=== PATIENT | male | born 1965 | race Caucasian/White ===

== ENCOUNTER 2018-04-24 09:21 | Emergency (ER) | payer OTHER, SELFPAY ==
--- NOTE | 2018-04-24 09:23 | ED.GENADULT ---
HPI - General Adult General Chief complaint: Urogenital-Male Stated complaint: states kidney stones, urinating blood Time Seen by Provider: 04/24/18 09:22 Source: patient Mode of arrival: ambulatory Limitations: no limitations History of Present Illness HPI narrative: Otherwise healthy 52-year-old male here for evaluation of when he thinks could potentially be a kidney stone. He states that approximately 14 days ago he had a trampoline accident where he states that he bent myself over did not seek any treatment afterwards. He states that a couple days after that he started having vague dysuria symptoms with urgency and frequency. He states that over the next week it got a little worse. Did not have any back pain. Did not have any tingling in his legs. No saddle anesthesia. He states that over the past week he now has started passing blood. No fevers. No nausea or vomiting. States that his pain is on the right side. Is radiating down to his groin however does not have any testicular pain. Has never had a kidney stone in the past. States that his symptoms are not worse with palpation or movement. Related Data Previous Rx's Medication Instructions Recorded albuterol sulfate [Ventolin HFA] 2 puff INH QID #1 ea 08/30/16 azithromycin [Zithromax] 250 - 500 mg PO QDAY #6 tab 08/30/16 ciprofloxacin HCl [Cipro] 500 mg PO BID 7 Days #14 tab 04/24/18 Allergies Allergy/AdvReac Type Severity Reaction Status Date / Time No Known Allergies Allergy Uncoded 07/01/17 12:44 Review of Systems Constitutional Denies fever(s) ENT Ears, Nose, Mouth, and Throat: Denies vertigo, Denies dizziness and Denies disequilibrium Cardiovascular Denies chest pain and Denies dyspnea Respiratory Denies dyspnea Gastrointestinal Gastrointestinal: Reports abdominal pain, Denies diarrhea, Denies loose stools, Denies nausea and Denies vomiting Genitourinary Denies difficulty urinating, Reports dysuria, Reports flank pain, Denies scrotal swelling, Denies testicular mass, Denies testicular pain, Reports urinary frequency, Reports urinary hesitancy, Denies urinary incontinence and Reports urinary urgency Musculoskeletal Denies back pain, Denies numbness and Denies tingling Integumentary/Breasts Denies lesions and Denies rash Neurologic Denies confusion, Denies vertigo, Denies dizziness, Denies numbness, Denies radicular pain, Denies tingling, Denies paresthesias and Denies disequilibrium Psychiatric Denies confusion Hematologic/Lymphatic Comments: Not on anticoagulation Allergic/Immunologic Denies urticaria PFSH Medical History Healthy adult (Acute) Surgical History H/O inguinal hernia repair (Acute) Social History marital status: lives independently: Yes Social History marital status: lives independently: Yes Exam Initial Vital Signs Initial Vital Signs: Vital Signs Temperature 98.0 F 04/24/18 09:27 Pulse Rate 90 04/24/18 09:27 Respiratory Rate 13 04/24/18 09:27 Blood Pressure 141/93 H 04/24/18 09:27 Pulse Oximetry 100 04/24/18 09:27 Const General: cooperative, healthy appearing, comfortable, well developed, well groomed and No acute distress Orientation: alert, awake and oriented x3 HENMT Head: normal to inspection and normocephalic Resp Effort & Inspection: normal respiratory effort Auscultation: clear to auscultation bilaterally Cardio Rate: regular rate Pulses: radial pulses present GI Inspection: non-distended Palpation: soft, No firm and No tender General: No CVA tenderness Back/Spine/Pelvis Back: No CVA tenderness Skin Lesions: no lesions Rashes: no rashes Neuro General: alert, awake and oriented x3 Cognition: normal cognition Speech: speech normal Gait: normal gait Motor: muscle tone normal throughout Sensory Exam: no sensory deficits noted Extrem General: normal to inspection and capillary refill normal Psych Appearance: grossly normal and well kempt Course Orders Ordered: ED Orders 04/24/18 10:08 Urinalysis and Microscopic Stat Urine Culture Stat Discontinued Medications Ciprofloxacin (Cipro) 500 mg PO NOW ONE Stop: 04/24/18 10:59 Last Admin: 04/24/18 11:11 Dose: 500 mg Vital Signs - 8 hr 04/24/18 11:30 04/24/18 11:53 Pulse Rate 80 68 Respiratory Rate 17 12 Blood Pressure 132/83 Blood Pressure [Left Arm] 132/83 Pulse Oximetry 96 100 Medical Decision Making Lab Data Lab results reviewed: Yes I reviewed the patient's lab results. Result diagrams: 04/24/18 09:45 04/24/18 09:45 Lab Results 04/24/18 04/24/18 04/24/18 Range/Units 09:45 09:45 10:08 WBC 8.9 (4.5-11.0) X10^3/uL RBC 4.71 (4.5-5.9) X10^6/uL Hgb 15.9 (13.5-17.5) g/dL Hct 47.0 (41-53) % MCV 99.6 (80-100) fL MCH 33.8 (26-34) PG MCHC 34.0 (30-36) % RDW 13.5 (11.6-14.8) % Plt Count 232 (150-400) X10^3/uL Neut % (Auto) 63.8 (50-75) % Lymph % (Auto) 20.2 L (25-40) % [place] % (Auto) 13.9 (3-14) % Eos % (Auto) 1.5 L (2-4) % Baso % (Auto) 0.6 (0-2) % Neut # (Auto) 5700 (6588-2641) /uL Lymph # (Auto) 1800 (5409-4787) /uL [place] # (Auto) 1200 H (0-900) /uL Eos # (Auto) 100 (0-450) /uL Baso # (Auto) 100 (0-100) /uL Sodium 138 (137-145) mmol/L Potassium 4.0 (3.4-5.1) mmol/L Chloride 100 (98-107) mmol/L Carbon Dioxide 27 (22-32) mmol/L BUN 12 (9-20) mg/dL Creatinine 0.90 (0.66-1.25) mg/dL Estimated GFR > 60.0 (>60) mL/min BUN/Creatinine Ratio 13.3 (6-22) Glucose 103 H (70-100) mg/dL Calcium 9.0 (8.4-10.2) mg/dL Urine Color Yellow Urine Appearance Sl cloudy Urine pH 6.0 (4.5-8.0) Ur Specific [place] 1.010 (1.000-1.035) Urine Protein 1+ H (Negative) Urine Glucose (UA) Negative (Negative) g/dL Urine Ketones Negative (NEGATIVE) Urine Occult Blood 3+ H (Negative) Urine Nitrate Negative (Negative) Urine Bilirubin Negative (NEGATIVE) Urine Urobilinogen 0.2 (0.2) E.U./dL Ur Leukocyte Esterase 3+ H (NEGATIVE) Urine RBC 30-100/hpf H (0-5/HPF) Urine WBC 30-100/hpf H (0-5/HPF) Urine Bacteria Moderate (10-30) H (None) Ur Culture Indicated? Specimen cultured Imaging Data CT scan - abdomen: Radiologist's impression: [address] [id number] [address] Scan Report Signed Patient: Abdias Hensley RMR#: [id number] : 1965Acct:[id number] Age/Sex: 52 / MDate of Service: 04/24/18 Loc: ED Accession Number: [id number] Procedure: CT abdomen pelvis w con Ordering Provider: Shawn Braga D.O. PROCEDURE: CT ABDOMEN PELVIS W CON INDICATIONS: trauma with hematuria TECHNIQUE: After the administration of intravenous contrast, 5 mm thick sections acquired from the diaphragm to the symphysis. 5 mm coronal and sagittal reformats were acquired. For radiation dose reduction, the following was used: automated exposure control, adjustment of mA and/or kV according to patient size. COMPARISON: None. FINDINGS: Image quality: Excellent. ABDOMEN: Lung bases: Lung bases are clear. Heart size is normal. Solid organs: Liver is normal in size and enhancement. Gallbladder is within normal limits. Biliary system is non dilated. Pancreas enhances normally. Spleen is normal in size and enhancement. No adrenal nodules. Kidneys demonstrate normal size and enhancement, without hydronephrosis. Mild diffuse bilateral ureteral dilatation is present. Peritoneum and bowel: Bowel loops demonstrate normal wall thickness and caliber. No free fluid or air. Normal appendix. Nodes and vessels: No retroperitoneal or mesenteric adenopathy by size criteria. Aorta and inferior vena cava are normal in size. Miscellaneous: No ventral hernias. PELVIS: Genitourinary: There is moderate diffuse urinary bladder wall thickening. Miscellaneous: No inguinal hernias or adenopathy. Bones: No suspicious bony lesions. No vertebral body compression fractures. IMPRESSION: 1. Diffuse urinary bladder wall thickening, suggestive of cystitis. No surrounding fluid to indicate rupture. 2. Normal appendix. Dictated by: Sherita Walker M.D. on 04/24/2018 at 10:30 MDM Narrative Medical decision making narrative: Patient's CT scan does not show any signs of an acute renal stone or other intra-abdominal pathology. His urinalysis and thickening of the bladder wall is somewhat concerning for a urinary tract infection. Given his right-sided flank pain there is also concern that this may be early pyelonephritis. He is not vomiting. He is not toxic appearing. Also informed him that he could have potentially recently passed a kidney stone. Patient was given the 1st dose of his antibiotics orally here in the emergency department. Was sent home with prescription for this. I do not feel like he needs admitted to the hospital for IV antibiotics currently. Patient was given return precautions. He was informed he needed to make contact the primary care doctor in the area. He and his both expressed understanding and agreement with plan. Discharge Plan Departure Patient Disposition: Home Clinical Impression: Urinary tract infection, Hematuria Discharge Date/Time: 04/24/18 12:00 Interventions: ED Discharge Assessment Last Done: 04/24/18 11:53 Instructions: DI for Urinary Tract Infection (UTI), DI for Hematuria Activity Restrictions/Additional Instructions: The CT scan today did not show any signs of a kidney stone. There were indications of a urinary tract infection and because of your right-sided back pain there is also a concern for potential kidney infection. You were given your 1st dose of antibiotics here in the emergency department. Your 2nd dose will be this evening. Take the rest as directed. I do recommend you may contact with the primary care doctor. Return to the emergency department for any fevers, inability to take your antibiotics, worsening symptoms despite the antibiotics, or inability to urinate. Prescriptions: New ciprofloxacin HCl [Cipro] 500 mg tablet 500 mg PO BID 7 Days Qty: 14 RF: 0 No Action azithromycin [Zithromax] 250 MG tablet 250 - 500 mg PO QDAY Qty: 6 RF: 0 albuterol sulfate [Ventolin HFA] 90 MCG/PUFF HFA aerosol inhaler 2 puff INH QID Qty: 1 RF: 0
[2018-04-24 09:27] VITALS: BP 141/93; PULSE 90; RESP 13; TEMP 36.7; O2SAT 100
--- NOTE | 2018-04-24 09:38 | DI.CT.S_ITS ---
PROCEDURE: CT ABDOMEN PELVIS W CON INDICATIONS: trauma with hematuria TECHNIQUE: After the administration of intravenous contrast, 5 mm thick sections acquired from the diaphragm to the symphysis. 5 mm coronal and sagittal reformats were acquired. For radiation dose reduction, the following was used: automated exposure control, adjustment of mA and/or kV according to patient size. COMPARISON: None. FINDINGS: Image quality: Excellent. ABDOMEN: Lung bases: Lung bases are clear. Heart size is normal. Solid organs: Liver is normal in size and enhancement. Gallbladder is within normal limits. Biliary system is non dilated. Pancreas enhances normally. Spleen is normal in size and enhancement. No adrenal nodules. Kidneys demonstrate normal size and enhancement, without hydronephrosis. Mild diffuse bilateral ureteral dilatation is present. Peritoneum and bowel: Bowel loops demonstrate normal wall thickness and caliber. No free fluid or air. Normal appendix. Nodes and vessels: No retroperitoneal or mesenteric adenopathy by size criteria. Aorta and inferior vena cava are normal in size. Miscellaneous: No ventral hernias. PELVIS: Genitourinary: There is moderate diffuse urinary bladder wall thickening. Miscellaneous: No inguinal hernias or adenopathy. Bones: No suspicious bony lesions. No vertebral body compression fractures. IMPRESSION: 1. Diffuse urinary bladder wall thickening, suggestive of cystitis. No surrounding fluid to indicate rupture. 2. Normal appendix. Dictated by: Sherita Walker M.D. on 04/24/2018 at 10:30 Approved by: Sherita Walker M.D. on 04/24/2018 at 10:32
--- NOTE | 2018-04-24 09:53 | PC.NURSE ---
unable to void at this time
[2018-04-24 09:54] LABS: Add Manual Diff / Slide Review NO; Basophils Absolute Auto 100 /uL (0-100); Basophils Percent Auto 0.6 % (0-2); Eosinophils Absolute Auto 100 /uL (0-450); Eosinophils Percent Auto 1.5 % (2-4); Hemoglobin 15.9 g/dL (13.5-17.5); Lymphocytes Absolute Auto 1800 /uL (1100-4500); Lymphocytes Percent Auto 20.2 % (25-40); Mean Corpuscular Hemoglobin 33.8 PG (26-34); Mean Corpuscular Volume 99.6 fL (80-100); Monocytes Absolute Auto 1200 /uL (0-900); Monocytes Percent Auto 13.9 % (3-14); Neutrophils Absolute Auto 5700 /uL (1500-7000); Neutrophils Percent Auto 63.8 % (50-75); Platelet Count 232 X10^3/uL (150-400); Red Blood Cell Count 4.71 X10^6/uL (4.5-5.9); Red Cell Distribution Width 13.5 % (11.6-14.8); White Blood Cell Count 8.9 X10^3/uL (4.5-11.0)
[2018-04-24 10:05] LABS: BUN Creatinine Ratio 13.3 (6-22); Blood Urea Nitrogen 12 mg/dL (9-20); Carbon Dioxide 27 mmol/L (22-32); Chloride 100 mmol/L (98-107); Estimated Glomerular Filt Rate > 60.0 mL/min (>60); Glucose 103 mg/dL (70-100); HEMOLYSIS 42 (0-50); Sodium 138 mmol/L (137-145)
[2018-04-24 10:12] LABS: Appearance Urine UA SL CLOUDY; Bilirubin Urine UA NEGATIVE (NEGATIVE); Color Urine UA YELLOW; Glucose Urine UA NEGATIVE (Negative); Ketones Urine UA NEGATIVE (NEGATIVE); Leukocyte Esterase Urine UA 3+ (NEGATIVE); Nitrite Urine UA NEGATIVE (Negative); Occult Blood Urine UA 3+ (Negative); Protein Urine UA 1+ (Negative); Urobilinogen Urine UA 0.2 E.U./dL (0.2)
[2018-04-24 10:19] LABS: Bacteria Urine Moderate (10-30); Culture Indicated Urine Specimen Cultured; RBC Urine 30-100/HPF (0-5/HPF); WBC Urine 30-100/HPF (0-5/HPF)
[2018-04-24 10:47] VITALS: BP 139/87; PULSE 84; O2SAT 97
[2018-04-24] MEDS: CIPROFLOXACIN 500 MG TABLET PO (11:11)
[2018-04-24 11:30] VITALS: BP 132/83; PULSE 80; RESP 17; O2SAT 96
[2018-04-24 11:53] VITALS: BP 132/83; PULSE 68; RESP 12; O2SAT 100
== END 2018-04-24 12:00 | disposition home or self-care (01) ==
PROVIDERS: Emergency Provider Emergency Medicine
DX: N39.0 Urinary tract infection, site not specified (principal); R31.0 Gross hematuria
CPT/HCPCS: 36591; 51798; 74177; 80048; 81001; 85025; 87077; 87086; 87186; 99284; 99285; Q9967

== ENCOUNTER 2022-11-06 08:18 | Emergency (ER) | payer OTHER, SELFPAY ==
[2022-11-06] VITALS (7 sets, daily range): BP systolic 141–168; BP diastolic 84–104; PULSE 79–106; RESP 14–24; TEMP 37.1; O2SAT 97–98; BMI 24.1
--- NOTE | 2022-11-06 08:25 | DI.RAD.S_ITS ---
PROCEDURE: XR CHEST 1V INDICATIONS: chest pain TECHNIQUE: One view of the chest was acquired. COMPARISON: None. FINDINGS: Surgical changes and devices: None. Lungs and pleura: Lungs are clear. No pleural effusions or pneumothorax. Mediastinum: Mediastinal contours appear normal. Heart size is normal. Bones and chest wall: No suspicious bony lesions. Overlying soft tissues appear unremarkable. IMPRESSION: No acute cardiopulmonary abnormality. Dictated by: Everton Duarte M.D. on 11/06/2022 at 8:48 Approved by: Everton Duarte M.D. on 11/06/2022 at 8:49
[2022-11-06 08:43] LABS: INR 1.2 (0.9-1.3); Prothrombin Time 13.6 SECONDS (10.1-12.7)
[2022-11-06 08:45] LABS: PTT Partial Thromboplastin Tim 33 SECONDS (26-36)
[2022-11-06 08:46] LABS: Alanine Aminotransferase 19 IU/L (<50); Albumin 4.5 g/dL (3.5-5.0); Albumin Globulin Ratio 1.3 (1.0-2.8); Alkaline Phosphatase 119 U/L (38-126); Aspartate Aminotransferase 24 IU/L (17-59); BUN Creatinine Ratio 12.5 (6-22); Bilirubin Total 0.9 mg/dL (0.2-1.3); Blood Urea Nitrogen 14 mg/dL (9-20); Calcium 9.1 mg/dL (8.4-10.2); Carbon Dioxide 23 mmol/L (22-32); Chloride 100 mmol/L (98-107); Creatine Kinase 141 U/L (55-170); Estimated Glomerular Filt Rate > 60 mL/min (>60); Globulin 3.5 g/dL (1.7-4.1); Glucose 193 mg/dL (70-100); HEMOLYSIS 16 (0-50); Lipase 81 U/L (23-300); Magnesium 2.2 mg/dL (1.6-2.3); Sodium 133 mmol/L (137-145)
[2022-11-06] MEDS: ASPIRIN 81 MG CHEW TAB 324 MG PO (08:55)
[2022-11-06 08:58] LABS: Troponin I < 0.012 ng/mL (0.01-0.034)
[2022-11-06 09:03] LABS: Add Manual Diff / Slide Review NO; Basophils Absolute Auto 100 /uL (0-100); Basophils Percent Auto 0.8 % (0-2); Eosinophils Absolute Auto 0 /uL (0-450); Eosinophils Percent Auto 0.1 % (2-4); Hematocrit 46.3 % (41-53); Hemoglobin 16.2 g/dL (13.5-17.5); Lymphocytes Absolute Auto 1300 /uL (1100-4500); Lymphocytes Percent Auto 9.1 % (25-40); Mean Corpuscular HGB Conc 34.9 % (30-36); Mean Corpuscular Volume 94.3 fL (80-100); Monocytes Absolute Auto 1600 /uL (0-900); Monocytes Percent Auto 11.4 % (3-14); Neutrophils Absolute Auto 11000 /uL (1500-7000); Neutrophils Percent Auto 78.6 % (50-75); Platelet Count 225 X10^3/uL (150-400); Red Blood Cell Count 4.91 X10^6/uL (4.5-5.9); Red Cell Distribution Width 14.3 % (11.6-14.8)
[2022-11-06 09:13] LABS: NT-proBNP (BNP-Adult 18+) 580 pg/mL (<125)
--- NOTE | 2022-11-06 09:53 | ED.CHESTPAIN ---
HPI - Chest Pain General Chief Complaint: Chest Pain Stated Complaint: per pt possibly having heart attack Time Seen by Provider: 11/06/22 08:51 Source: patient Mode of arrival: Family Vehicle Limitations: no limitations History of Present Illness HPI narrative: 57-year-old male with history of asthma, patient presents with complaint of elevated heart rate and left-sided chest pressure. Patient states he is had episodes intermittently where his heart rate goes up to 120-160s. Patient states it tends to happen more when his arms above his head work but sometimes can happen at any time. He is noticed it for the last 3-5 months. He states not increasing frequency today it lasted about 10 or 15 minutes he had left-sided chest pressure radiating to his neck. Patient states he felt mildly short of breath he will often feel lightheaded during these episodes. He denies any syncope. He will get sweaty with them. Denies nausea or vomiting. He states he has not had much appetite lately but has been drinking plenty of fluids he states he will sometimes intermittently have diarrhea constipation, sometimes has dark stools. Patient states he does have some difficulty starting his stream when he urinates but no other frequency, dysuria or other changes. Patient has not seen a doctor in many years. Has known history of asthma. Has had prior finger surgery and hernia repair as an infant. Smokes 15 cigarettes daily, half beer some days of the week, uses marijuana, denies other illicit. No family history of pulmonary emboli, clots, no travel but does have a brother who is had multiple stents and heart surgery. He is unsure if his brother has not any cardiac arrhythmias. Related Data Previous Rx's Medication Instructions Recorded cyclobenzaprine 5 mg tablet 5 mg PO TID PRN muscle spasm #20 02/11/21 tabs Allergies Allergy/AdvReac Type Severity Reaction Status Date / Time No Known Drug Allergies Allergy Verified 11/06/22 08:49 Review of Systems Review of Systems ROS Unobtainable: All systems reviewed & are unremarkable except as noted in HPI and below Patient History Medical History Healthy adult Surgical History H/O inguinal hernia repair Social History marital status: lives independently: Yes Smoking Status: Current every day smoker Smoking Status: Current every day smoker tobacco type: cigarettes alcohol intake frequency: holidays/special occasions only Substance Use Type: marijuana Exam Narrative Exam Narrative: GENERAL: Alert and oriented x three, male in mild distress. HEENT: Head normocephalic, atraumatic, EOMI, pupils reactive, face symmetric, moist mucous membranes NECK: Supple, full range of motion CARDIOVASCULAR: Regular rate and rhythm without murmurs, rubs or gallops. No JVD. No swelling bilateral lower extremities. 2+ pulses bilateral lower extremities. RESPIRATORY: Breath sounds equal bilaterally, no wheezes rales or rhonchi. No tachypnea, accessory muscle use. ABDOMEN: Soft, nontender. Normoactive bowel sounds all 4 quadrants. No guarding or rebound, rigidity, no mass : No CVA tenderness EXTREMITIES: Normal range of motion, no clubbing or edema. Neurovascularly intact NEUROLOGICAL: Cranial nerves II through XII grossly intact. Moving all extremities SKIN: Warm, dry, no petechiae, no rashes or lesions. Initial Vital Signs Initial Vital Signs: Vital Signs Temperature 98.8 F 11/06/22 08:25 Pulse Rate 106 H 11/06/22 08:25 Respiratory Rate 14 11/06/22 08:25 Blood Pressure 168/104 H 11/06/22 08:25 Pulse Oximetry 98 11/06/22 08:25 Oxygen Delivery Method Room Air 11/06/22 08:25 Course Orders Ordered: Discontinued Medications Aspirin (Aspirin 81 Mg Chew Tab) 324 mg PO NOW ONE Stop: 11/06/22 08:26 Last Admin: 11/06/22 08:55 Dose: 324 mg Documented By: ALEX Sodium Chloride (Normal Saline 0.9%) 1,000 mls @ 1,000 mls/hr IV BOLUS ONE Stop: 11/06/22 11:07 Last Infusion: 11/06/22 11:22 Dose: 0 mls/hr Documented By: Admin: 11/06/22 10:14 Dose: 1,000 mls/hr Documented By: ALEX Vital Signs Vital signs: Vital Signs - 8 hr 11/06/22 08:25 11/06/22 09:08 11/06/22 09:30 Temperature 98.8 F Pulse Rate 106 H 87 Respiratory Rate 14 20 Blood Pressure 168/104 H 147/91 H 146/84 H Pulse Oximetry 98 97 Oxygen Delivery Method Room Air Room Air 11/06/22 09:30 11/06/22 09:59 11/06/22 10:00 Temperature Pulse Rate 82 86 Respiratory Rate 24 20 Blood Pressure 167/100 H Pulse Oximetry 97 97 Oxygen Delivery Method Room Air 11/06/22 10:00 11/06/22 10:30 11/06/22 10:30 Temperature Pulse Rate 88 84 Respiratory Rate 23 Blood Pressure 141/92 H Pulse Oximetry 97 97 Oxygen Delivery Method 11/06/22 11:00 11/06/22 11:00 Temperature Pulse Rate 79 Respiratory Rate 22 Blood Pressure 144/86 H Pulse Oximetry 98 Oxygen Delivery Method MDM - Chest Pain Lab Data 11/06/22 08:30 11/06/22 08:30 Labs: Lab Results 11/06/22 11/06/22 11/06/22 Range/Units 08:30 08:30 08:30 WBC 14.0 H (4.5-11.0) X10^3/uL RBC 4.91 (4.5-5.9) X10^6/uL Hgb 16.2 (13.5-17.5) g/dL Hct 46.3 (41-53) % MCV 94.3 (80-100) fL MCH 33.0 (26-34) PG MCHC 34.9 (30-36) % RDW 14.3 (11.6-14.8) % Plt Count 225 (150-400) X10^3/uL Neut % (Auto) 78.6 H (50-75) % Lymph % (Auto) 9.1 L (25-40) % Rosebud % (Auto) 11.4 (3-14) % Eos % (Auto) 0.1 L (2-4) % Baso % (Auto) 0.8 (0-2) % Neut # (Auto) 44839 H (7009-3410) /uL Lymph # (Auto) 1300 (6734-9352) /uL Rosebud # (Auto) 1600 H (0-900) /uL Eos # (Auto) 0 (0-450) /uL Baso # (Auto) 100 (0-100) /uL PT 13.6 H (10.1-12.7) SECONDS INR 1.2 (0.9-1.3) APTT 33 (26-36) SECONDS D-Dimer (<500) ng/ml Sodium 133 L (137-145) mmol/L Potassium 4.0 (3.4-5.1) mmol/L Chloride 100 (98-107) mmol/L Carbon Dioxide 23 (22-32) mmol/L BUN 14 (9-20) mg/dL Creatinine 1.12 (0.66-1.25) mg/dL Estimated GFR > 60 (>60) mL/min BUN/Creatinine Ratio 12.5 (6-22) Glucose 193 H (70-100) mg/dL Calcium 9.1 (8.4-10.2) mg/dL Magnesium 2.2 (1.6-2.3) mg/dL Total Bilirubin 0.9 (0.2-1.3) mg/dL AST 24 (17-59) IU/L ALT 19 (<50) IU/L Alkaline Phosphatase 119 (38-126) U/L Total Creatine Kinase 141 (55-170) U/L Troponin I < 0.012 (0.01-0.034) ng/mL NT-Pro-B Natriuret Pep (<125) pg/mL Total Protein 8.0 (6.3-8.2) g/dL Albumin 4.5 (3.5-5.0) g/dL Globulin 3.5 (1.7-4.1) g/dL Albumin/Globulin Ratio 1.3 (1.0-2.8) Lipase 81 (23-300) U/L TSH (0.47-4.68) uIU/mL 11/06/22 11/06/22 11/06/22 Range/Units 08:30 08:30 08:30 WBC (4.5-11.0) X10^3/uL RBC (4.5-5.9) X10^6/uL Hgb (13.5-17.5) g/dL Hct (41-53) % MCV (80-100) fL MCH (26-34) PG MCHC (30-36) % RDW (11.6-14.8) % Plt Count (150-400) X10^3/uL Neut % (Auto) (50-75) % Lymph % (Auto) (25-40) % Rosebud % (Auto) (3-14) % Eos % (Auto) (2-4) % Baso % (Auto) (0-2) % Neut # (Auto) (5133-6519) /uL Lymph # (Auto) (3537-6361) /uL Rosebud # (Auto) (0-900) /uL Eos # (Auto) (0-450) /uL Baso # (Auto) (0-100) /uL PT (10.1-12.7) SECONDS INR (0.9-1.3) APTT (26-36) SECONDS D-Dimer 431 (<500) ng/ml Sodium (137-145) mmol/L Potassium (3.4-5.1) mmol/L Chloride (98-107) mmol/L Carbon Dioxide (22-32) mmol/L BUN (9-20) mg/dL Creatinine (0.66-1.25) mg/dL Estimated GFR (>60) mL/min BUN/Creatinine Ratio (6-22) Glucose (70-100) mg/dL Calcium (8.4-10.2) mg/dL Magnesium (1.6-2.3) mg/dL Total Bilirubin (0.2-1.3) mg/dL AST (17-59) IU/L ALT (<50) IU/L Alkaline Phosphatase (38-126) U/L Total Creatine Kinase (55-170) U/L Troponin I (0.01-0.034) ng/mL NT-Pro-B Natriuret Pep 580 H (<125) pg/mL Total Protein (6.3-8.2) g/dL Albumin (3.5-5.0) g/dL Globulin (1.7-4.1) g/dL Albumin/Globulin Ratio (1.0-2.8) Lipase (23-300) U/L TSH 1.64 (0.47-4.68) uIU/mL 11/06/22 Range/Units 10:35 WBC (4.5-11.0) X10^3/uL RBC (4.5-5.9) X10^6/uL Hgb (13.5-17.5) g/dL Hct (41-53) % MCV (80-100) fL MCH (26-34) PG MCHC (30-36) % RDW (11.6-14.8) % Plt Count (150-400) X10^3/uL Neut % (Auto) (50-75) % Lymph % (Auto) (25-40) % Rosebud % (Auto) (3-14) % Eos % (Auto) (2-4) % Baso % (Auto) (0-2) % Neut # (Auto) (4167-2641) /uL Lymph # (Auto) (7480-2637) /uL Rosebud # (Auto) (0-900) /uL Eos # (Auto) (0-450) /uL Baso # (Auto) (0-100) /uL PT (10.1-12.7) SECONDS INR (0.9-1.3) APTT (26-36) SECONDS D-Dimer (<500) ng/ml Sodium (137-145) mmol/L Potassium (3.4-5.1) mmol/L Chloride (98-107) mmol/L Carbon Dioxide (22-32) mmol/L BUN (9-20) mg/dL Creatinine (0.66-1.25) mg/dL Estimated GFR (>60) mL/min BUN/Creatinine Ratio (6-22) Glucose (70-100) mg/dL Calcium (8.4-10.2) mg/dL Magnesium (1.6-2.3) mg/dL Total Bilirubin (0.2-1.3) mg/dL AST (17-59) IU/L ALT (<50) IU/L Alkaline Phosphatase (38-126) U/L Total Creatine Kinase (55-170) U/L Troponin I 0.018 (0.01-0.034) ng/mL NT-Pro-B Natriuret Pep (<125) pg/mL Total Protein (6.3-8.2) g/dL Albumin (3.5-5.0) g/dL Globulin (1.7-4.1) g/dL Albumin/Globulin Ratio (1.0-2.8) Lipase (23-300) U/L TSH (0.47-4.68) uIU/mL Imaging Data Chest x-ray: Radiologist's Impression: [address] [id number] XRay Report Signed Patient: Abdias Hensley MR#: [id number] : 1965 Acct:[id number] Age/Sex: 57 / M Date of Service: 11/06/22 Loc: ED Accession Number: [id number] ?? Procedure: XR chest 1V Ordering Provider: Katelyn Frazier D.O. PROCEDURE:? XR CHEST 1V ? INDICATIONS:? chest pain ? TECHNIQUE:? One view of the chest was acquired.? ? COMPARISON:? None. ? FINDINGS:? ? Surgical changes and devices:? None.? ? Lungs and pleura:? Lungs are clear.? No pleural effusions or pneumothorax.? ? Mediastinum:? Mediastinal contours appear normal.? Heart size is normal.? ? Bones and chest wall:? No suspicious bony lesions.? Overlying soft tissues appear unremarkable.? ? IMPRESSION:? No acute cardiopulmonary abnormality. ? ? ? Dictated by: Everton Duarte M.D. on 11/06/2022 at 8:48 ? ? Approved by: Everton Duarte M.D. on 11/06/2022 at 8:49?? ECG Data Attestation: I personally reviewed and interpreted this ECG as follows: Prior ECG tracings: not available for review Interpretation: Sinus tachycardia rate of 109 VT 160 QRS is 78 QTC [address]. No acute ST elevation or depression appreciated. No priors for comparison. EKG 2. Shows sinus rhythm rate of 73 VT 174 QRS 82 QTC of 401. No acute ST elevation. Patient depression in lead 3 Q-wave no other acute changes. Patient's EKG appears similar to prior earlier today in lead 3. MDM Narrative Medical decision making narrative: This is a 57-year-old male with remote history of asthma. Patient appreciates intermittent tachycardia that started suddenly without any particular cause although he notes when he is working with his arms over his head it is more common but not always. He would left-sided chest pain with it today. Tachycardia is resolved he was 109. Sinus tach when he arrived he gets numbers 120s to 160s and wears a watch which is correlating with our numbers here in the department. Suspect patient may have some SVT or possibly atrial fibrillation or other cardiac arrhythmia. CBC shows a white count of 14 hemoglobin 16 platelets 225, negative coags, glucose is 193 creatinine is 1.12 with normal BUN and potassium is 4, troponin was negative with a BNP of 580 chest x-ray does not show any acute changes and patient's exam does not have any acute changes consistent with CHF. Patient does not have any high-risk embolic factors other than tobacco use, he does have a brother that has known coronary artery disease unclear if mother has any cardiac arrhythmias. Patient drinks alcohol but typically a half beer daily at the most. He has not been eating very much because of decreased appetite this week. Patient was given a L fluids, repeat troponin EKG as well as dimer. Dimer is negative. No dynamic changes on EKG. Repeat troponin is still negative but point 018. Discussed with patient would like to hang onto him for a 3rd troponin just to make sure he is not still trending upwards. He states he feels asymptomatic at this time prefers to discharge home. Discussed return precautions, signs and symptoms to watch for. Need for follow-up. Plan for follow up with primary care/Cardiology for suspected SVT. Discharge Plan Departure Patient Disposition: Home Clinical Impression: Tachycardia Instructions: DI for Arrhythmias Activity Restrictions/Additional Instructions: I suspect you may be having episodes of SVT (supraventricular tachycardia) or other cardiac arrhythmia. Please call to set follow up with primary care and/or Cardiology and for Holter monitor or ZIO patch. If you develop an episode of fast heartbeat you can try vagal maneuvers such as holding your breath and bearing down to see if this resolves your symptoms. Make sure you are drinking plenty of fluids, I would avoid alcohol at this time. Please return for new or recurrent episodes, new chest pain, shortness of breath, passing out or lightheadedness, nausea or vomiting, diarrhea, black or bloody stools or other new or concerning changes. Prescriptions: No Action cyclobenzaprine 5 mg tablet 5 mg PO TID PRN (Reason: muscle spasm) Qty: 20 0RF Referrals: Miscellaneous,MD Guillermo [Primary Care Provider] - Cheyanne Chung MD [Physician] - Fady Engel DO [Physician] - Moriah Sellers DO [Physician] - Stand Alone Forms: Patient Portal/API
[2022-11-06] MEDS: SODIUM CHLORIDE 0.9% 1,000 ML 1000 ML IV (10:14)
[2022-11-06 10:21] LABS: D Dimer 431 ng/ml (<500)
[2022-11-06 11:04] LABS: TSH w/ Reflex to FT4 1.64 uIU/mL (0.47-4.68)
[2022-11-06 11:05] LABS: Troponin I 0.018 ng/mL (0.01-0.034)
== END 2022-11-06 11:23 | disposition home or self-care (01) ==
PROVIDERS: Emergency Provider Emergency Medicine
DX: R00.0 Tachycardia, unspecified (principal); R07.9 Chest pain, unspecified; R79.89 Other specified abnormal findings of blood chemistry
CPT/HCPCS: 36415; 71045; 80053; 82550; 83690; 83735; 83880; 84443; 84484; 85025; 85379; 85610; 85730; 93005; 99284

== ENCOUNTER → 2023-02-18 09:51 | Outpatient (CLI) | payer OTHER, SELFPAY | PROVIDERS: Visit Provider Nurse Practitioner Family | DX: R30.0 Dysuria (principal) | CPT/HCPCS: 87077; 87086; 87186 ==

== ENCOUNTER → 2023-02-20 08:18 | Outpatient (CLI) | payer OTHER, SELFPAY ==
[2023-02-20 09:20] LABS: Add Manual Diff / Slide Review NO; Basophils Absolute Auto 100 /uL (0-100); Basophils Percent Auto 0.6 % (0-2); Eosinophils Absolute Auto 100 /uL (0-450); Hematocrit 46.6 % (41-53); Hemoglobin 15.8 g/dL (13.5-17.5); Lymphocytes Absolute Auto 2000 /uL (1100-4500); Lymphocytes Percent Auto 16.4 % (25-40); Mean Corpuscular HGB Conc 33.8 % (30-36); Mean Corpuscular Hemoglobin 32.6 PG (26-34); Mean Corpuscular Volume 96.5 fL (80-100); Monocytes Absolute Auto 1000 /uL (0-900); Monocytes Percent Auto 8.4 % (3-14); Neutrophils Absolute Auto 9000 /uL (1500-7000); Neutrophils Percent Auto 73.6 % (50-75); Platelet Count 303 X10^3/uL (150-400); Red Blood Cell Count 4.83 X10^6/uL (4.5-5.9); Red Cell Distribution Width 14.8 % (11.6-14.8); White Blood Cell Count 12.2 X10^3/uL (4.5-11.0)
[2023-02-20 09:24] LABS: Hemoglobin A1C% w Est Avg Glu 6.1 % (4.0-6.0)
[2023-02-20 09:41] LABS: Alanine Aminotransferase 20 IU/L (<50); Albumin 4.4 g/dL (3.5-5.0); Albumin Globulin Ratio 1.3 (1.0-2.8); Alkaline Phosphatase 124 U/L (38-126); Aspartate Aminotransferase 21 IU/L (17-59); BUN Creatinine Ratio 16.4 (6-22); Bilirubin Total 0.6 mg/dL (0.2-1.3); Blood Urea Nitrogen 19 mg/dL (9-20); Calcium 9.8 mg/dL (8.4-10.2); Carbon Dioxide 26 mmol/L (22-32); Chloride 103 mmol/L (98-107); Estimated Glomerular Filt Rate > 60 mL/min (>60); Globulin 3.5 g/dL (1.7-4.1); Glucose 119 mg/dL (70-100); HEMOLYSIS < 15 (0-50); Potassium 4.2 mmol/L (3.4-5.1); Sodium 136 mmol/L (137-145); Total Protein 7.9 g/dL (6.3-8.2)
[2023-02-23 16:43] LABS: HIV 1 & 2 Ab/Ag 4th Gen Combo NEGATIVE (NEGATIVE); Hep C Virus Ab w/Reflex Quant NEGATIVE s/c (NEGATIVE)
== END ==
PROVIDERS: PCP Family Medicine; Referring Provider Family Medicine; Visit Provider Family Medicine
DX: N41.0 Acute prostatitis (principal); R19.09 Other intra-abdominal and pelvic swelling, mass and lump; Z11.4 Encounter for screening for human immunodeficiency virus [HIV]; Z13.1 Encounter for screening for diabetes mellitus; Z11.59 Encounter for screening for other viral diseases
CPT/HCPCS: 36415; 80053; 83036; 84153; 85025; 86803; 87389

== ENCOUNTER → 2023-02-25 16:06 | Outpatient (CLI) | payer OTHER, SELFPAY ==
--- NOTE | 2023-02-25 16:08 | DI.US.S_ITS ---
PROCEDURE: US RENAL COMPLETE INDICATIONS: UTI - PAIN - PROSTATITIS TECHNIQUE: Real-time scanning was performed of the kidneys and bladder, with image documentation. COMPARISON: None. FINDINGS: Kidneys: Kidneys are normal in size. Right kidney measures 10.4 cm long; left kidney measures 10.8 cm long. Right renal cortical thickness is 1.5 cm; left renal cortical thickness is 1.7 cm. Renal cortical echotexture is normal. No hydronephrosis or nephrolithiasis. No suspicious solid mass lesions. There is a 1.6 x 1.7 x 1.8 cm cyst noted in the inferior pole of the left kidney. Bladder: Pre-void bladder volume is 262 mL. Post-void residual is 222 mL. Pre-void images demonstrate no intraluminal masses or stones. On pre-void images, bilateral ureteral jets are noted with color Doppler interrogation. (Of note, ureteral jets may not be detectable in up to 25% of cases due to insufficient differences in specific gravity between ureteral and bladder urine). Miscellaneous: No free pelvic fluid. Prominent right inguinal lymph nodes are visualized. IMPRESSION: 1. Bilateral kidneys without acute sonographic abnormalities. No evidence for nephrolithiasis or obstructive uropathy. 2. Large postvoid residual volume of 222 mL. Dictated by: Urban Macario M.D. on 02/26/2023 at 9:39 Approved by: Urban Macario M.D. on 02/26/2023 at 9:50
== END ==
PROVIDERS: PCP Family Medicine; Referring Provider Family Medicine; Visit Provider Family Medicine
DX: N41.0 Acute prostatitis (principal); R19.09 Other intra-abdominal and pelvic swelling, mass and lump; N50.819 Testicular pain, unspecified; Z87.19 Personal history of other diseases of the digestive system
CPT/HCPCS: 76770

== ENCOUNTER → 2025-01-12 09:27 | Outpatient (CLI) | payer OTHER, SELFPAY | PROVIDERS: PCP Family Medicine; Visit Provider Urology | DX: R39.9 Unspecified symptoms and signs involving the genitourinary system (principal); R31.9 Hematuria, unspecified | CPT/HCPCS: 87077; 87086 ==